=== PATIENT | male | born 1995 | race Caucasian/White ===

== ENCOUNTER 2022-05-20 11:23 | Emergency (ER) | payer OTHER, SELFPAY ==
--- NOTE | ~2022-05-20 | XR_ITS ---
XR ankle LT min 3V DATE: 05/20/2022 11:59 INDICATION: Fall on 05/19/2022. Generalized numbness since. TECHNIQUE: 4 views COMPARISON: None FINDINGS: No fracture or dislocation of the ankle or disruption of the ankle mortise. No periosteal r eaction or bone destruction. IMPRESSION: Negative Reviewed, dictated and finalized at location A. IMPRESSION: Negative
--- NOTE | ~2022-05-20 | XR_ITS ---
XR foot LT min 3V DATE: 05/20/2022 11:59 INDICATION: Fall. Generalized numbness. TECHNIQUE: 4 views COMPARISON: None FINDINGS: There is osteopenia. There is mild osteoarthritis at first metatarsophalangeal joint. No fracture or dislocation, periosteal reaction or bone destruction. IMPRESSION: Osteopenia Mild osteoarthritis at first metatarsophalangeal joint Reviewed, dictated and finalized at location A.
[2022-05-20 11:31] VITALS: BP 131/63; PULSE 79; RESP 20; TEMP 37; O2SAT 100
--- NOTE | 2022-05-20 11:40 | ED.LOWEXIN ---
HPI - Extremity Injury (Lower) General Chief Complaint: Extremity Injury, Lower Stated Complaint: left foot pain Time Seen by Provider: 05/20/22 11:23 Source: patient and RN notes reviewed History of Present Illness HPI Narrative: Patient is a 26-year-old who presents the urgent care with complaints of left ankle and foot pain. Patient states that he fell patient to follow-up in 2-3 days with primary care provider. Yesterday and now is having bruising to the second and third toes and abrasion to the ankle. Patient states he has a lot of numbness in the foot and cannot feel the foot past the ankle bone. Patient had an accident 10 years ago that left him a right amputee and issues with his left lower extremity. Patient has been using ice and ibuprofen. No other acute complaints. No acute distress noted. Patient read the plan of care. Some parts of this dictation were generated by voice recognition software and may contain typographical and/or grammatical inaccuracies. Related Data Home Medications Medication Instructions Recorded Confirmed escitalopram oxalate 10 mg tablet 10 mg PO DAILY 05/20/22 05/20/22 Allergies Allergy/AdvReac Type Severity Reaction Status Date / Time No Known Allergies Allergy Verified 05/20/22 11:44 Review of Systems Review of Systems: CONSTITUTIONAL: Denies fever, chills, or sweats. EYES: Denies visual changes, redness, or discharge. ENT: Denies rhinorrhea, congestion, sore throat, or otalgia. CARDIOVASCULAR: Denies chest pain, palpitations, or edema. RESPIRATORY: Denies cough or dyspnea. GASTROINTESTINAL: Denies abdominal pain, nausea, vomiting, or diarrhea. GENITOURINARY: Denies dysuria or hematuria. SKIN: Denies rash or itching. MUSCULOSKELETAL: Reports of left ankle and foot pain with bruising to the toes NEUROLOGIC: Denies headache, numbness, or weakness. All other systems reviewed are negative, except as documented in HPI. PMFSH Comments At the time of my signature, I reviewed and agree with the nursing past medical, surgical, social, and family history. There is no relevant family history pertinent to the patient complaint. Exam Narrative: GENERAL: This is a well-nourished, well-developed patient, in no apparent distress. HEAD: normocephalic, atraumatic. EYES: PERRL. Sclera clear/white. Vision is grossly intact. EARS: External ears normal NOSE: External nose normal with no obvious nasal discharge, nares without redness, no rhinorrhea. THROAT: Mucous membranes moist NECK: Neck supple SKIN: warm, intact with no suspicious lesions or rash, good texture and turgor. NEURO: awake, alert, and oriented to person, place and time. There were no obvious focal neurologic abnormalities. EXTREMITIES: Positive strong left pedal pulse with capillary refill less than 2 seconds. Rest joint motion to left ankle within normal limits with mild exacerbated pain on flexion. Ecchymotic bruise on the second and third left toes. No obvious deformity noted. Course Course Level of Care: Express Care Visit Vital Signs Vital signs: Vital Signs Temperature 98.6 F 05/20/22 11:31 Pulse Rate 79 05/20/22 11:31 Respiratory Rate 20 05/20/22 11:31 Blood Pressure 131/63 05/20/22 11:31 Pulse Oximetry 100 05/20/22 11:31 Oxygen Delivery Room Air 05/20/22 11:31 Temperature 98.6 F 05/20/22 11:31 Pulse Rate 79 05/20/22 11:31 Respiratory Rate 20 05/20/22 11:31 Blood Pressure 131/63 05/20/22 11:31 Pulse Oximetry 100 05/20/22 11:31 Oxygen Delivery Room Air 05/20/22 11:31 Reviewed MDM - Extremity Injury (Lower) MDM Narrative Medical decision making narrative: Reviewed x-ray results with the patient. He is aware that ankle and foot x-ray are both negative. Advised the patient to continue ice/Tylenol/ibuprofen and elevation. Wear supportive shoe. Follow-up with your PCP within 2 to 5 days or for worsening symptoms or failure to improve. Differential Diagnosis Differe
== END 2022-05-20 12:15 | disposition home or self-care (01) ==
PROVIDERS: Emergency Provider Nurse Practitioner Family; PCP Internal Medicine
DX: S93.402A Sprain of unspecified ligament of left ankle, initial encounter (principal); S96.912A Strain of unspecified muscle and tendon at ankle and foot level, left foot, initial encounter; W19.XXXA Unspecified fall, initial encounter; S90.122A Contusion of left lesser toe(s) without damage to nail, initial encounter; F32.A Depression, unspecified
CPT/HCPCS: 73610; 73630; 99203; G0463

== ENCOUNTER 2023-01-14 13:56 | Emergency (ER) | payer OTHER, SELFPAY ==
--- NOTE | ~2023-01-14 | XR_ITS ---
EXAM: XR finger 1st LT min 2V DATE: 01/14/2023 14:17 HISTORY: FELL DOWN STEPS X1 1/2 WKS AGO. JAMMED 1ST MP JT. . COMPARISON: None available. FINDINGS: Normal mineralization. No fracture or dislocation. No lytic or blastic lesion. Joint space s are maintained. No erosion or periosteal change. Soft tissues within normal limits. IMPRESSION: No acute osseous finding in the left thumb. Reviewed, dictated and finalized at location K.
[2023-01-14 14:00] VITALS: BP 126/70; PULSE 72; RESP 20; TEMP 36.7; O2SAT 100
--- NOTE | 2023-01-14 14:30 | ED.UPPEXIN ---
HPI - Extremity Injury (Upper) General Chief Complaint: Extremity Injury, Upper Stated Complaint: left hand injury Time Seen by Provider: 01/14/23 14:20 Source: patient, RN notes reviewed and old records reviewed Mode of arrival: ambulatory Limitations: no limitations History of Present Illness HPI narrative: 27 year old male who presents to [facility] care with complaints of falling down steps about 1.5 weeks, He states that he scratched his left knee and also hurt his left thumb when he fell. Patient has some healing abrasions to his left knee and reports his thumb feel like it is jammed. Patient reports that he can move his thumb but it is painful. He states that he has been taking Ibuprofen for his discomfort. Patient has strong left radial pulse with no complaints of tingling or numbness to his left thumb with no obvious deformity noted. MD complaint: injury to: left and finger (thumb) Onset (ago): week(s) (1.5) Other injuries: LLE (abrasions to left knee scabbed) Severity scale (1-10): 4 Treatments prior to arrival: NSAIDS Related Data Home Medications Medication Instructions Recorded Confirmed escitalopram oxalate 10 mg tablet 10 mg PO DAILY 05/20/22 01/14/23 Allergies Allergy/AdvReac Type Severity Reaction Status Date / Time No Known Allergies Allergy Verified 05/20/22 11:44 Review of Systems Review of Systems: CONSTITUTIONAL: Denies fever, chills, or sweats. CARDIOVASCULAR: Denies chest pain, palpitations, or edema. RESPIRATORY: Denies cough or dyspnea. SKIN: Denies rash or itching. Denies lacerations or abrasions MUSCULOSKELETAL: Reports fall with injury to his left thumb with no obvious deformity NEUROLOGIC: Denies numbness, or weakness. All systems reviewed & are unremarkable except as noted in HPI and below [facility] [place] Past Medical History Medical History (Updated 01/15/23 @ 14:47 by Araceli Bustos NP) Above knee amputation of right lower extremity Anxiety and depression Surgical History Surgical History (Updated 01/15/23 @ 14:37 by Araceli Bustos NP) History of appendectomy History of skin graft left thigh Social History Social History (Updated 01/15/23 @ 14:39 by Araceli Bustos NP) Smoking status: Former smoker Tobacco type: cigarettes Alcohol intake: unknown Substance use: former Substance use type: former substance user and heroin Gender identity (if verbalized by the patient): Male Comments At time of signature, agree with nursing past medical, surgical, social and family history. There is no relevant family history pertinent to the presenting complaint Exam Narrative: GENERAL: Well-appearing, well-nourished, and in no acute distress. HEAD: Normocephalic, atraumatic. EYES: PERRLA and EOMI. ENT: Nares clear, no rhinorrhea or epistaxis. Mucous membranes moist.TM's normal,throat pink with no swelling NECK: Supple.no lymphadenopathy CHEST: Clear to auscultation. No respiratory distress.SAO2 100% on room air HEART: Regular rate and rhythm. No murmur heard. Normal peripheral pulses. ABDOMEN: Soft, nontender, nondistended, normal active bowel sounds. EXTREMITIES: Normal range of motion. No edema.Wears prosthesis right leg. Pain to left thumb, denies any tingling or numbness left hand, movement intact left thumb, strong radial pulse, no obvious deformity. SKIN: Warm, dry, no rash. NEURO: No focal deficits. Alert and oriented x3. Course Course Level of Care: Express Care Visit Vital Signs Vital signs: Vital Signs Temperature 36.7 C 01/14/23 14:00 Pulse Rate 72 01/14/23 14:00 Respiratory Rate 20 01/14/23 14:00 Blood Pressure 126/70 01/14/23 14:00 Pulse Oximetry 100 01/14/23 14:00 Oxygen Delivery Room Air 01/14/23 14:00 Temperature 36.7 C 01/14/23 14:00 Pulse Rate 72 01/14/23 14:00 Respiratory Rate 20 01/14/23 14:00 Blood Pressure 126/70 01/14/23 14:00 Pulse Oximetry 100 01/14/23 14:00 Oxygen Delivery Room Air
== END 2023-01-14 14:38 | disposition home or self-care (01) ==
PROVIDERS: Emergency Provider Registered Nurse; PCP Internal Medicine
DX: S63.602A Unspecified sprain of left thumb, initial encounter (principal); W10.9XXA Fall (on) (from) unspecified stairs and steps, initial encounter; F41.9 Anxiety disorder, unspecified; F32.A Depression, unspecified; Z89.612 Acquired absence of left leg above knee
CPT/HCPCS: 73140; 99213; G0463

== ENCOUNTER 2023-12-11 10:21 | Emergency (ER) | payer OTHER, SELFPAY ==
[2023-12-11 10:28] VITALS: BP 129/98; PULSE 88; RESP 18; TEMP 36.6; O2SAT 100
--- NOTE | 2023-12-11 10:39 | ED.LOWEXIN ---
HPI - Extremity Injury (Lower) General Chief Complaint: Extremity Injury, Lower Stated Complaint: Left Hip/ Leg Pain Source: patient Mode of arrival: ambulatory Limitations: no limitations History of Present Illness HPI Narrative: 28 y/o male with hx Right AKA and prosthesis presented for c/o left groin pain worsening for several weeks. Pt denies any injury or overuse. Pain is worse with walking, states he could barely walk or tie his shoe today. Pain radiates up to lower abdomen. Reports concern for straining a groin muscle. Not taking anything for pain. Denies testicular pain or swelling, urinary complaints, fever or chills. Related Data Home Medications Medication Instructions Recorded Confirmed escitalopram oxalate 10 mg tablet 10 mg PO DAILY 05/20/22 12/11/23 Allergies Allergy/AdvReac Type Severity Reaction Status Date / Time No Known Allergies Allergy Verified 12/11/23 10:53 Review of Systems Review of Systems: CONSTITUTIONAL: Denies body aches, fever, chills, or sweats. CARDIOVASCULAR: Denies chest pain, palpitations, or edema. RESPIRATORY: Denies cough or dyspnea. GASTROINTESTINAL: Denies abdominal pain, nausea, vomiting, or diarrhea. GENITOURINARY: Reports left groin pain; Denies dysuria or hematuria. SKIN: Denies rash, itching, or wounds. MUSCULOSKELETAL: Denies back pain, joint pain, or myalgia. NEUROLOGIC: Denies headache All systems reviewed & are unremarkable except as noted in HPI and below PMFSH Past Medical History Medical History Above knee amputation of right lower extremity Anxiety and depression Surgical History Surgical History History of appendectomy History of skin graft left thigh Social History Social History Smoking status: Former smoker Tobacco type: cigarettes Alcohol intake: unknown Substance use: former Substance use type: former substance user and heroin Gender identity (if verbalized by the patient): Male Comments At time of signature, I have reviewed and agree with nursing past medical, surgical, social and family history unless otherwise noted. Please see nursing chart for further information. There is no relevant family history pertinent to the presenting complaint Exam Narrative: GENERAL: Well-appearing EYES: EOMI. No redness or drainage. Conjunctivae normal. ENT: Mucous membranes pink and moist. CHEST: No respiratory distress. Clear to auscultation. HEART: Regular rate and rhythm. No murmur appreciated. Normal peripheral pulses. ABDOMEN: Left inguinal tenderness with palpation; exam limited pt sitting. Soft, nontender, nondistended, normal active bowel sounds. MUSCULOSKELETAL: No bony tenderness. EXTREMITIES: Normal range of motion. No edema. Right leg prosthesis. SKIN: Warm, dry, no rash. Capillary refill normal. Normal skin turgor. NEURO: No focal deficits. Alert and oriented x3. Gait steady. PSYCH: Normal affect. GI: Abdomen image: 1. area of pain Course Course Emergency Course: Patient is aware of diagnosis, understands and agrees to treatment plan. Anticipatory guidance given. Patient agrees to follow-up as directed and is aware of reasons to seek care at the emergency department. Portions of this record may have been created with voice recognition software Level of Care: Express Care Visit Vital Signs Vital signs: Vital Signs Temperature 98 F 12/11/23 10:28 Pulse Rate 88 12/11/23 10:28 Respiratory Rate 18 12/11/23 10:28 Blood Pressure 129/98 H 12/11/23 10:28 Pulse Oximetry 100 12/11/23 10:28 Oxygen Delivery Room Air 12/11/23 10:28 Temperature 98 F 12/11/23 10:28 Pulse Rate 88 12/11/23 10:28 Respiratory Rate 18 12/11/23 10:28 Blood Pressure 129/98 H 12/11/23 10:28 Pulse Oximetry 100 12/11/23 10:28 Oxygen Del
== END 2023-12-11 11:00 | disposition short-term general hospital (02) ==
PROVIDERS: Emergency Provider Nurse Practitioner Family; PCP Internal Medicine
DX: R10.32 Left lower quadrant pain (principal); Z87.891 Personal history of nicotine dependence; F41.9 Anxiety disorder, unspecified; F32.A Depression, unspecified; Z89.611 Acquired absence of right leg above knee
CPT/HCPCS: 99212; G0463

== ENCOUNTER 2024-02-06 11:30 | Emergency (ER) | payer OTHER, SELFPAY ==
[2024-02-06 11:34] VITALS: BP 120/61; PULSE 85; RESP 16; TEMP 36.9; O2SAT 100
--- NOTE | 2024-02-06 11:50 | ED.GENADULT ---
HPI - General Adult General Chief complaint: Extremity Injury, Lower Stated complaint: Left side hip pain Time Seen by Provider: 02/06/24 11:50 Source: patient, RN notes reviewed and old records reviewed Mode of arrival: ambulatory Limitations: no limitations History of Present Illness HPI narrative: 28-year-old male to Express Care for complaint of left groin pain has been intermittent over the past 6 months it is getting progressively worse. Patient endorses history of fasciotomy at left medial thigh. Patient endorses history of similar complaint and reports resolution and relief with steroid treatment. Patient denies radiation of pain, urinary changes, bowel changes, fever, abdominal pain. patient ambulated with steady gait with use of right prosthetic leg to exam room. Patient calm and in no acute distress in exam room. Related Data Home Medications Medication Instructions Recorded Confirmed escitalopram oxalate 10 mg tablet 10 mg PO DAILY 05/20/22 12/11/23 Allergies Allergy/AdvReac Type Severity Reaction Status Date / Time No Known Allergies Allergy Verified 02/06/24 11:36 Review of Systems Review of Systems: All systems reviewed & are unremarkable except as noted in HPI and below Constitutional: Constitutional: Reports no additional constitutional complaints Eyes: Eyes: Reports no additional eye complaints ENT: Reports system reviewed and no additional complaints, except as documented Cardiovascular: Cardiovascular: Reports no additional cardiovascular complaints, Denies chest pain and Denies dyspnea Respiratory: Respiratory: Reports no additional respiratory complaints, Denies cough and Denies dyspnea Musculoskeletal: Musculoskeletal: Reports as per HPI Comments: Left upper medial leg pain Neurologic: Reports system reviewed and no additional complaints, except as documented Psychiatric: Psychiatric: Reports no additional psychiatric complaints [facility] Past Medical History Medical History Above knee amputation of right lower extremity Anxiety and depression Surgical History Surgical History History of appendectomy History of skin graft left thigh Social History Social History Smoking status: Former smoker Tobacco type: cigarettes Alcohol intake: unknown Substance use: former Substance use type: former substance user and heroin Gender identity (if verbalized by the patient): Male Comments At the time of my signature, I reviewed and agree with the nursing past medical, surgical, social, and family history. There is no relevant family history pertinent to the patient complaint. Exam Const: General: cooperative, healthy appearing, comfortable, no acute distress, alert and well nourished Nutritional Appearance: well nourished Orientation/consciousness: patient oriented x3 Limitations: no limitations HENMT: Head: normal to inspection Ears: external ears normal Face/Nose/Sinus: Normal external nose present, Normal nares present, normal facial exam, No erythema and No edema Face and sinus: normal facial exam, no erythema and no edema Mouth: Yes Normal oral and palatal mucosa present Eyes: General: appearance normal, both eyes and all related structures Neck: Neck: normal visual inspection, full ROM and no meningeal signs Lymphatic: no lymphadenopathy noted and no lymphedema noted Chest: Chest palpation & inspection: normal inspection of the chest Resp: Effort & Inspection: normal respiratory effort and able to speak in complete sentences Auscultation: clear to auscultation bilaterally Cardio: Jugular venous distension: no JVD Rate: regular rate Rhythm: regular rhythm Back/Spine/Pelvis: Cervical Spine: cervical ROM normal Skin: General skin exam: normal color, no rashes or lesi
== END 2024-02-06 12:31 | disposition home or self-care (01) ==
PROVIDERS: Emergency Provider Nurse Practitioner Family; PCP Internal Medicine
DX: R10.32 Left lower quadrant pain (principal); Z87.891 Personal history of nicotine dependence; F41.9 Anxiety disorder, unspecified; F32.A Depression, unspecified; Z89.611 Acquired absence of right leg above knee
CPT/HCPCS: 99213; G0463